=== PATIENT | male | born 1975 | race Caucasian/White ===

== ENCOUNTER 2021-06-16 18:29 | Emergency (ER) | payer OTHER, SELFPAY ==
[2021-06-16 18:30] VITALS: BP 114/78; PULSE 98; RESP 16; TEMP 37.2; O2SAT 99; BMI 17.9
[2021-06-16 18:38] VITALS: BP 114/78; PULSE 98; RESP 16; TEMP 37.2; O2SAT 99
--- NOTE | 2021-06-16 19:05 | EDS_ITS ---
HPI History of Present Illness Chief Complaint: Nausea/Vomiting Detail of Chief Complaint: Reason for presentation is nausea vomiting with mild diarrhea and abdominal Informant: patient Onset/Context/Timing Onset: Today Context: Sudden Onset Timing: Continuous (Abdominal pain has been continuous and described as dull) Quality: Dull Location: Generalized Current Severity: Mild Maximum Severity: Moderate Worsened by: Vomiting or diarrhea Relieved by: Nothing Associated Symptoms Associated Symptoms: Chills Narrative Narrative: Patient is a 45-year-old male who is a smoker of 1 pack/day who presents because of abdominal pain with nausea, vomiting diarrhea that started today. He has had 2 loose stools and is vomited more than 10 times. Daughter is ill with vomiting. He endorses 15 pound weight loss over the past month. This is unintentional weight loss. There is a family history of lung cancer. He states his mom of lung cancer. He denies night sweats. He denies headache. He denies visual, ocular auditory symptoms. He denies shortness of breath or difficulty breathing. He denies blood or mucus in his diarrhea. There is no history of IBD in the family or patient. Patient reports decreased urination. He reports dry mouth, thirst and has orthostatic symptoms. Prior similar symptoms: No Recent Illness/Hospitalization: No PFSH PFSH Medical History no medical history no medical history Allergy/AdvReac Type Severity Reaction Status Date / Time No Known Allergies Allergy Verified 06/16/21 18:32 Family History (Updated 06/16/21 @ 19:[address] Miguel A Alexander MD) Other Cancer Surgical History no surgical history Social History (Updated 06/16/21 @ 19:[address] Miguel A Alexander MD) household members: spouse and children Smoking Status: Current every day smoker tobacco type: cigarettes substance use type: does not use ROS ROS ED Constitutional Constitutional ED: Reports chills and weight loss; Denies fever(s), subjective or sweats Eyes Eyes: Denies blurry vision, change in vision or diplopia ENT ENT ED: Reports other Details: Complains of thirst and dry mouth ; Denies ear pain, rhinorrhea or sore throat Cardiovascular Cardiovascular: Reports other Details: Orthostatic ; Denies chest pain or palpitations Respiratory/Chest Respiratory/Chest: Denies cough, dyspnea or dyspnea on exertion Gastrointestinal Gastrointestinal: Reports abdominal pain, diarrhea, nausea and vomiting; Denies melena Genitourinary Genitourinary ED: Denies dysuria, hematuria or urinary frequency Musculoskeletal Musculoskeletal: Denies arthralgias, back pain, myalgias or neck pain Integumentary Denies rash Neurologic Neurologic: Denies headache(s), paresthesias or weakness Endocrine Endocrinology: Denies polydipsia, polyphagia or polyuria EXAM Physical Exam Const Vital Signs: 06/16/21 18:30 06/16/21 18:38 Temperature 99 F 99 F Temperature Source Temporal Temporal Pulse Rate 98 98 Respiratory Rate 16 16 Blood Pressure 114/78 114/78 Blood Pressure Mean 90 90 Pulse Ox 99 99 Oxygen Delivery Method Room Air Room Air Positive well developed and cachectic General Appearance ED: well developed, cachectic and other Patient appears ill ; Negative for cyanotic, diaphoretic, NAD or pallor Nutritional Appearance: cachectic HEENT Reports TM's clear and dry mucous membranes HEENT Narrative: Uvula midline. There is no erythema or exudate. Negative for trauma or tenderness Tympanic Membrane ED: Yes TM's clear Mouth ED: Yes dry mucous membranes Mouth: dry mucous membranes Eyes PERRL and EOMs intact bilaterally General Eye ED: Negative for pale conjunctiva or scleral icterus Neck no lymphadenopathy, supple and no JVD Chest Wall inspection of chest normal and palpation of chest normal Resp normal respiratory effort and clear to auscultation bilaterally Cardio regular rate, regular rhythm, S1 normal heart sound, S2 normal heart sound and n o murmurs GI normal to inspection, nondistended, normoactive bowel sounds; Negative for non- tender or hepatosplenomegaly Auscultation: hyperactive bowel sounds Palpation: soft and tender other (Diffuse) Back/Spine no CVA tenderness Thoracic Spine / Upper Back: Negative for thoracic spinal tenderness or paraspinal muscle tenderness Extremity normal to inspection General Extremety ED: Negative for edema or tenderness General Extremity: Negative for edema Neuro oriented x3 and CN's II-XII intact bilaterally Sensorium / Orientation: alert Psych mental status grossly normal Skin no rashes or lesions noted and no wounds General Skin Exam: Negative for jaundice or pallor MDM MDM MDM Narrative Medical decision making narrative: Clinically patient looks dehydrated. IV fluids was ordered and antiemetic. Dicyclomine for his cramping abdominal pain. Because he has had a 15 pound unintentional weight loss which is approximately 10% of his body weight will obtain blood work to assess calcium, alkaline phosphatase electrolytes as well as white count and H&H. Lab Data Attestation: I reviewed the patient's lab results. Lab results narrative: White count is slightly elevated which is nonspecific and not concerning. Comprehensive metabolic panel is remarkable for elevated glucose. Urine is positive for ketones, glucose and occult blood. Specific gravity is unremarkable. Patient declined second liter of normal saline. He would like to go home. He was informed of his results. He was informed the importance of follow-up and the concern that he may have new onset diabetes and needs further testing. This may explain his weight loss. Labs: Laboratory Results - last 24 hr 06/16/21 06/16/21 06/16/21 19:12 19:12 19:30 WBC 11.7 H RBC 4.95 Hgb 16.1 Hct 45.9 MCV 92.7 MCH 32.5 H MCHC 35.1 RDW Std Deviation 42.4 RDW Coeff of Amandeep 12.4 Plt Count 447 MPV 10.3 Immature Gran % (Auto) 0.400 Neut % (Auto) 85.3 H Lymph % (Auto) 9.4 L [place] % (Auto) 4.7 Eos % (Auto) 0.0 Baso % (Auto) 0.2 Absolute Neuts (auto) 10.0 H Absolute Lymphs (auto) 1.10 Nucleated RBC % 0 Sodium 139 Potassium 3.5 Chloride 106 Carbon Dioxide 23.0 Anion Gap 10 BUN 9 Creatinine 1.13 Estim Creat Clear Calc 67.60 Est GFR (MDRD) Af Amer 91 Est GFR (MDRD) Non-Af 75 BUN/Creatinine Ratio 8.0 L Glucose 167 H Calcium 10.3 H Total Bilirubin 0.80 AST 14 L ALT 22 Alkaline Phosphatase 84 Total Protein 8.1 Albumin 4.6 Globulin 3.5 Albumin/Globulin Ratio 1.3 Urine Color Yellow Urine Clarity Clear Urine pH 6.5 Ur Specific [place] 1.015 Urine Protein 30 H Urine Glucose (UA) 50 H Urine Ketones 150 A* Urine Occult Blood 25 H Urine Nitrite Negative Urine Bilirubin Negative Urine Urobilinogen Normal Ur Leukocyte Esterase 25 H Discharge Plan Triage Chief Complaint: Nausea/Vomiting ED Provider: Miguel A Alexander Dx/Rx/DC Orders Clinical Impression: Abdominal pain, vomiting, and diarrhea, Dehydration, moderate, Ketosis, Acute hyperglycemia Instructions: ED Dehydration (Adult), ED Hyperglycemia New Susp Diabetes, ED Vomiting and Diarrhea ... Primary Care Provider: Halima Alcantar Referrals: Halima Alcantar MD [Primary Care Provider] - 3-5 Days (Unintentional weight loss patient is elevated blood sugar with glucose urea suspect new onset diabetes) Disposition Disposition: Home, Self Care
[2021-06-16] MEDS: Ondansetron 4 MG/2 ML Vial IV (19:13)
[2021-06-16] MEDS: Dicyclomine 10 MG Capsule 20 MG PO (19:13)
[2021-06-16] MEDS: 0.9% Normal Saline 1,000 ML 1000 ML IV ×2 (19:17→20:03)
[2021-06-16 19:33] LABS: Basophil# 0.02 X10^3/uL; Basophil% 0.2 % (0-1); Hematocrit 45.9 % (40-54); Hemoglobin 16.1 g/dL (13.0-16.5); Lymphocyte % 9.4 % (19-41); Mean Corp Hgb Conc 35.1 g/dL (32-36); Mean Corpuscular Hgb 32.5 pg (27.0-32.0); Mean Corpuscular Volume 92.7 fL (80-94); Mean Platelet Vol. 10.3 fl (6.2-12.0); Monocyte# 0.55 X10^3/uL; Monocyte% 4.7 % (0-10); NRBC Flagged by Analyzer 0 % (0-5); Neutrophil # 10.01 X10^3/uL (2.7-7.7); Neutrophil % 85.3 % (47-70); Platelet Count 447 K/mm3 (150-450); RBC Distribution Width CV 12.4 % (11.6-14.6); RBC Distribution Width SD 42.4 fl (35.1-43.9); Red Blood Count 4.95 M/mm3 (4.6-6.2); White Blood Count 11.7 K/mm3 (4.4-11.0)
[2021-06-16 19:40] LABS: Color, Urine Yellow (Yellow); Glucose, Dipstick 50 mg/dl (Normal); Leukocyte Esterase-Dipstick 25 /ul (Negative); Nitrite-Dipstick Negative (Negative); Occult Blood-Urine 25 /ul (Negative); Protein-Dipstick 30 mg/dl (Negative); Specific Gravity, Urine 1.015 (1.002-1.030); Urine Bilirubin Dipstick Negative (Negative); Urine Clarity Clear (Clear); Urine Urobilinogen Normal (Normal); Urine pH 6.5 (5.0 - 8.0)
[2021-06-16 19:43] LABS: Ketone-Dipstick 150 mg/dl (Negative)
[2021-06-16 19:52] LABS: ALB/GLOB Ratio 1.3 RATIO (0.9-2.4); AST(SGOT) 14 U/L (15-37); Alanine Aminotransfer ALT/SGPT 22 U/L (16-61); Albumin, Serum 4.6 g/dL (3.2-5.0); Alkaline Phosphatase 84 U/L (45-117); Anion Gap 10 (5-15); BUN 9 mg/dL (7-18); Calcium,Total 10.3 mg/dL (8.5-10.1); Chloride 106 mmol/L (98-107); Creatinine, Serum 1.13 mg/dL (0.70-1.30); EST Glomerular Filtration Rate 75 mL/min (>60); Est Glom Filt Rate - Afr Amer 91 mL/min (>60); Globulin 3.5 g/dL (2.2-4.2); Glucose 167 mg/dL (74-106); Potassium 3.5 mmol/L (3.5-5.1); Protein, Total 8.1 g/dL (6.4-8.2); Sodium Level 139 mmol/L (136-145)
[2021-06-16 20:18] VITALS: BP 114/74; PULSE 80; RESP 17; O2SAT 95
== END 2021-06-16 20:19 | disposition home or self-care (01) ==
PROVIDERS: Emergency Provider Emergency Medicine; PCP Family Medicine; Visit Provider Emergency Medicine
DX: R10.9 Unspecified abdominal pain (principal); E88.89 Other specified metabolic disorders; R11.2 Nausea with vomiting, unspecified; F17.210 Nicotine dependence, cigarettes, uncomplicated; R19.7 Diarrhea, unspecified; E86.0 Dehydration; R73.9 Hyperglycemia, unspecified; R63.4 Abnormal weight loss
CPT/HCPCS: 80053; 81002; 85025; 96361; 96374; 99282; J7030; J2405